=== PATIENT | female | born 1960 | race Caucasian/White ===

== ENCOUNTER 2023-07-29 09:24 | Day surgery (SDC) | payer OTHER ==
[~2023-07-29] VITALS: Ht 152.4 cm; Wt 68.0 kg
[2023-07-29] MEDS ORDERED: fentaNYL citrate 0.05 MG/ML VIAL ONE (12:22)
[2023-07-29] MEDS ORDERED: MIDAZOLAM 2 MG/2 ML VIAL ONE (12:22)
[2023-07-29] MEDS ORDERED: diphenhydrAMINE 50 MG/ML VIAL ONE (12:23)
== END 2023-07-29 14:00 | disposition home or self-care (01) ==
LOC: MOR 09:24 → MMU 10:07 → MOR 14:00
PROVIDERS: ATTEND Internal Medicine Gastroenterology
DX: Z12.11 Encounter for screening for malignant neoplasm of colon (principal); K63.5 Polyp of colon; I10 Essential (primary) hypertension; E78.5 Hyperlipidemia, unspecified; F41.9 Anxiety disorder, unspecified; E11.9 Type 2 diabetes mellitus without complications; Z80.1 Family history of malignant neoplasm of trachea, bronchus and lung; Z79.82 Long term (current) use of aspirin; Z79.84 Long term (current) use of oral hypoglycemic drugs; Z79.899 Other long term (current) drug therapy
CPT/HCPCS: 45385; 82948; J1200; J3010; J2250